=== PATIENT | female | born 1980 | race Caucasian/White ===

== ENCOUNTER 2019-09-10 04:31 | Outpatient (CLI) | payer MEDICARE, MEDICAID ==
[~2019-09-10 04:31] MED LIST: COL100C PO; METH500T PO; MORP100C17 PO; MYCOL30CR TP; OFLO5DRO3 RIGHTEYE; ONDA4TAB59 PO
== END 2019-09-10 23:59 | disposition home or self-care (01) ==
LOC: DIABETIC 04:31
PROVIDERS: ATTEND Family Medicine
CPT/HCPCS: 97802